=== PATIENT | female | born 1990 | race Caucasian/White ===

== ENCOUNTER 2017-01-18 19:46 | Outpatient (CLI) | payer MEDICARE | END 2017-01-18 21:45 | disposition home or self-care (01) | LOC: GENOP 19:46 | DX: O99.89 Other specified diseases and conditions complicating pregnancy, childbirth and the puerperium (principal); R10.9 Unspecified abdominal pain; M54.9 Dorsalgia, unspecified; R51 Headache; Z3A.37 37 weeks gestation of pregnancy | CPT/HCPCS: 81001; G0463 ==

== ENCOUNTER 2017-01-22 18:20 | Inpatient (IN) | payer MEDICARE ==
[~2017-01-22] VITALS: Ht 162.6 cm; Wt 127.0 kg
[2017-01-22 19:30] LABS: HEMOGLOBIN 12.8 gm/dl (12.3-15.3); RED BLOOD COUNT 4.43 M/UL (4.00-5.10); WHITE BLOOD COUNT 9.4 K/UL (4.5-11.0)
[2017-01-23 19:01] LABS: BUN/CREATININE RATIO 18 (0-10)
[2017-01-24 03:29] LABS: HEMOGLOBIN 10.5 gm/dl (12.3-15.3)
[2017-01-25] MEDS ORDERED: COLACE 100MG C100 MG PO (13:48)
== END 2017-01-25 16:22 | disposition home or self-care (01) | DRG 765 ==
LOC: GENOP 18:20 → OB 23:45
PROVIDERS: Obstetrics & Gynecology; ADMIT Obstetrics & Gynecology
PROC: 3E0R3CZ (ICD-10-PCS; 2017-01-23)
PROC: 10D00Z1 Extraction of Products of Conception, Low, Open Approach (ICD-10-PCS; principal; 2017-01-23 07:50)
PROC: 3E0234Z Introduction of Serum, Toxoid and Vaccine into Muscle, Percutaneous Approach (ICD-10-PCS; 2017-01-25)
DX: O14.14 Severe pre-eclampsia complicating childbirth (principal); Z68.42 Body mass index [BMI] 45.0-49.9, adult; O99.354 Diseases of the nervous system complicating childbirth; O34.219 Maternal care for unspecified type scar from previous cesarean delivery; N85.8 Other specified noninflammatory disorders of uterus; O99.214 Obesity complicating childbirth; E66.01 Morbid (severe) obesity due to excess calories; O32.2XX0 Maternal care for transverse and oblique lie, not applicable or unspecified; Z3A.38 38 weeks gestation of pregnancy; Z37.0 Single live birth; O09.893 Supervision of other high risk pregnancies, third trimester; O99.42 Diseases of the circulatory system complicating childbirth; R00.0 Tachycardia, unspecified; R07.89 Other chest pain; O99.513 Diseases of the respiratory system complicating pregnancy, third trimester; J45.909 Unspecified asthma, uncomplicated; O99.344 Other mental disorders complicating childbirth; F41.9 Anxiety disorder, unspecified; G43.009 Migraine without aura, not intractable, without status migrainosus; O99.334 Smoking (tobacco) complicating childbirth; F17.200 Nicotine dependence, unspecified, uncomplicated; Z23 Encounter for immunization; Z79.899 Other long term (current) drug therapy; Z88.3 Allergy status to other anti-infective agents; Z88.2 Allergy status to sulfonamides; Z98.890 Other specified postprocedural states; Z82.5 Family history of asthma and other chronic lower respiratory diseases; Z83.49 Family history of other endocrine, nutritional and metabolic diseases; Z83.3 Family history of diabetes mellitus; Z82.49 Family history of ischemic heart disease and other diseases of the circulatory system; Z80.3 Family history of malignant neoplasm of breast; Z80.9 Family history of malignant neoplasm, unspecified
CPT/HCPCS: 36415; 80048; 81001; 82248; 82550; 82553; 82565; 82800; 84132; 84295; 84450; 84460; 84484; 84550; 85014; 85018; 85025; 85379; 85384; 85610; 85730; 87086; 90715; 93005; C9113; J1200; J1580; J1885; J2250; J2270; J2274; J2405; J2590; J2765; J3010; J7120; Q0163

== ENCOUNTER → 2017-02-13 | Outpatient (CLI) | payer MEDICARE ==
[~2017-02-13] MED LIST: COLACE 100MG C100 MG PO
== END ==
LOC: US 09:08
DX: R10.11 Right upper quadrant pain (principal); R16.0 Hepatomegaly, not elsewhere classified
CPT/HCPCS: 76705

== ENCOUNTER → 2017-03-21 | Outpatient (CLI) | payer MEDICARE | LOC: NM 09:12 | DX: R10.11 Right upper quadrant pain (principal); R16.0 Hepatomegaly, not elsewhere classified; M54.2 Cervicalgia | CPT/HCPCS: 36415; 72040; 78227; 80076; A9537; J2805 ==

== ENCOUNTER → 2017-03-26 | Day surgery (SDC) | payer MEDICARE ==
[~2017-03-26] VITALS: Ht 165.1 cm; Wt 113.4 kg
== END | disposition home or self-care (01) ==
LOC: OR 07:08
PROVIDERS: Internal Medicine Gastroenterology
PROC: 0DB78ZX Excision of Stomach, Pylorus, Via Natural or Artificial Opening Endoscopic, Diagnostic (ICD-10-PCS; principal; 2017-03-26 11:30)
DX: K29.50 Unspecified chronic gastritis without bleeding (principal); K21.0 Gastro-esophageal reflux disease with esophagitis; K44.9 Diaphragmatic hernia without obstruction or gangrene; E66.9 Obesity, unspecified; F41.9 Anxiety disorder, unspecified; F32.9 Major depressive disorder, single episode, unspecified; Z68.41 Body mass index [BMI] 40.0-44.9, adult; Z83.3 Family history of diabetes mellitus; Z90.49 Acquired absence of other specified parts of digestive tract
CPT/HCPCS: 84703; J2250; J3010; J7030